=== PATIENT | female | born 1965 | race Asian ===

== ENCOUNTER 2021-08-16 20:25 | Inpatient (IN) | payer MEDICAID ==
[~2021-08-16] VITALS: Ht 152.4 cm; Wt 59.0 kg
[2021-08-16 21:22] VITALS: BP_SYST 173
[2021-08-16 22:43] LABS: NEUTROPHILS # (AUTO) 4.9 K/uL (1.8-7.7); WHITE BLOOD COUNT (AUTO) 8.2 K/uL (4.8-10.8)
[2021-08-16 22:51] LABS: BASOPHILS % (AUTO) 0.4 % (0.0-2.0); EOSINOPHILS # (AUTO) 0.4 K/uL (0.0-0.4); HEMATOCRIT 37.4 % (36-48); HEMOGLOBIN 12.7 g/dL (12.0-16.0); LYMPHOCYTES # (AUTO) 2.4 K/uL (1.0-5.5); MEAN CORPUSCULAR HEMOGLOBIN 28 pg (27-31); MEAN CORPUSCULAR HGB CONC 34 % (32-36); MEAN CORPUSCULAR VOLUME 81 fL (79.0-98.0); MONOCYTES # (AUTO) 0.5 K/uL (0.0-1.0); MONOCYTES % (AUTO) 6.5 % (1.7-9.3); NEUTROPHILS % (AUTO) 59.1 % (40.0-70.0); PLATELET COUNT (AUTO) 229 K/uL (130-430); RED BLOOD CELL COUNT(AUTO) 4.59 MIL/uL (4.2-6.2); RED CELL DISTRIBUTION WIDTH 12.6 % (9.0-15.0)
[2021-08-16 22:55] LABS: ALBUMIN 4.2 g/dL (3.4-4.8); CALCIUM 10.7 mg/dL (8.4-11.0); CREATININE 0.69 mg/dL (0.55-1.30); TOTAL BILIRUBIN 0.5 mg/dL (0.0-1.0)
[2021-08-16 23:36] LABS: POTASSIUM 2.9 mmol/L (3.5-5.1)
[2021-08-17] MEDS ORDERED: POTASSIUM CHLORIDE 20 MEQ/PKT PACKET PO ONE (00:15)
[2021-08-17] MEDS ORDERED: KCL 20 mEq in 100 mL (PREMIX) 100 ML IV ONE (00:15)
[2021-08-17] MEDS ORDERED: MAGNESIUM SULFATE 50 ML IV ONE (00:15)
[2021-08-17] MEDS ORDERED: NACL 0.9% 1,000 ML IV ONE (00:15)
[2021-08-17] MEDS ORDERED: ATOR10TA68 PO (02:12)
[2021-08-17] MEDS ORDERED: FAMO20TA8 PO (02:13)
[2021-08-17] MEDS ORDERED: DOCU250C14 PO (02:13)
[2021-08-17] MEDS ORDERED: LOSA100T3 PO (02:14)
[2021-08-17] MEDS ORDERED: METO50TA7 PO (02:14)
[2021-08-17] MEDS ORDERED: HYDR25TA4 PO (02:14)
[2021-08-17] MEDS ORDERED: INSU300I SQ (02:15)
[2021-08-17] MEDS ORDERED: KCL 20 mEq in D5NS 1000 mL 1,000 ML IV ONE ×2 (04:08→21:30)
[2021-08-17 05:26] VITALS: BP_SYST 124
[2021-08-17 08:00] VITALS: BP_SYST 122
[2021-08-17] MEDS: KCL 20 mEq in D5NS 1000 mL 1,000 ML IV SCH ×3 (09:14→21:34)
[2021-08-17] MEDS ORDERED: POLYETHYLENE GLYCOL 3350, 17 GM/ POWD.PACK PO ONE (09:30)
[2021-08-17] MEDS ORDERED: MINERAL OIL 30 ML UDC PO ONE (09:30)
[2021-08-17] MEDS ORDERED: SODIUM PHOSPHATE,MONO-DIBASIC 133 ML ENEMA RC ONE (09:30)
[2021-08-17 12:00] VITALS: BP_SYST 132
[2021-08-17] MEDS ORDERED: INSULIN REGULAR, HUMAN 100 UNITS/ML, 10 ML VIAL (humuLIN R) SUBCUT PRN (13:15)
[2021-08-17] MEDS ORDERED: D5W 1,000 ML IV PRN (13:15)
[2021-08-17] MEDS ORDERED: DEXTROSE 50% JECT 50 ML DISP.SYRIN IVP PRN (13:15)
[2021-08-17] MEDS ORDERED: GLUCOSE (DEXTROSE) ORAL GEL -Adults PO PRN (13:15)
[2021-08-17 16:00] VITALS: BP_SYST 144
[2021-08-17] MEDS ORDERED: LUBIPROSTONE 8 MCG CAPSULE PO SCH ×2 (16:30→21:00)
[2021-08-17] MEDS ORDERED: DOCUSATE SODIUM 250 MG CAPSULE PO PRN (16:30)
[2021-08-17 16:57] LABS: CALCIUM 8.2 mg/dL (8.4-11.0); CREATININE 0.52 mg/dL (0.55-1.30); POTASSIUM 3.3 mmol/L (3.5-5.1)
[2021-08-17 19:40] VITALS: BP_SYST 147
[2021-08-17] MEDS: POLYETHYLENE GLYCOL 3350, 17 GM/ POWD.PACK PO SCH (20:36)
[2021-08-17] MEDS: ENOXAPARIN SODIUM 40 MG/0.4 ML SYRINGE SUBCUT SCH (21:00)
[2021-08-17] MEDS: INSULIN GLARGINE 100 UNITS/ML 10 ML VIAL SUBCUT SCH (21:26)
[2021-08-18 00:08] VITALS: BP_SYST 119
[2021-08-18 08:00] VITALS: BP_SYST 128
[2021-08-18] MEDS: LOSARTAN POTASSIUM 50 MG TABLET (COZAAR) PO SCH (09:00)
[2021-08-18] MEDS: METOPROLOL SUCCINATE 50 MG TAB.SR.24H (TOPROL XL) PO SCH (09:00)
[2021-08-18] MEDS: LUBIPROSTONE 8 MCG CAPSULE PO SCH ×2 (09:00→21:00)
[2021-08-18] MEDS: FAMOTIDINE 20 MG TABLET PO SCH (09:25)
[2021-08-18] MEDS: ATORVASTATIN 10 MG TABLET PO SCH (09:25)
[2021-08-18] MEDS: POLYETHYLENE GLYCOL 3350, 17 GM/ POWD.PACK PO SCH ×2 (09:25→22:48)
[2021-08-18] MEDS: KCL 20 mEq in D5NS 1000 mL 1,000 ML IV SCH (12:13)
[2021-08-18 13:14] VITALS: BP_SYST 137
[2021-08-18 14:17] VITALS: BP_SYST 119
[2021-08-18 16:38] VITALS: BP_SYST 137
[2021-08-18 20:00] VITALS: BP_SYST 144
[2021-08-18] MEDS: ENOXAPARIN SODIUM 40 MG/0.4 ML SYRINGE SUBCUT SCH (21:00)
[2021-08-18] MEDS: INSULIN GLARGINE 100 UNITS/ML 10 ML VIAL SUBCUT SCH (21:00)
[2021-08-19 00:30] VITALS: BP_SYST 117
[2021-08-19] MEDS: KCL 20 mEq in D5NS 1000 mL 1,000 ML IV SCH (02:56)
[2021-08-19 06:56] LABS: BASOPHILS % (AUTO) 0.5 % (0.0-2.0); EOSINOPHILS # (AUTO) 0.8 K/uL (0.0-0.4); EOSINOPHILS % (AUTO) 9.8 % (0.0-4.0); HEMATOCRIT 34.5 % (36-48); HEMOGLOBIN 11.9 g/dL (12.0-16.0); LYMPHOCYTES # (AUTO) 2.3 K/uL (1.0-5.5); LYMPHOCYTES % (AUTO) 29.4 % (20.5-51.5); MEAN CORPUSCULAR HEMOGLOBIN 29 pg (27-31); MEAN CORPUSCULAR HGB CONC 35 % (32-36); MEAN CORPUSCULAR VOLUME 83 fL (79.0-98.0); MONOCYTES # (AUTO) 0.4 K/uL (0.0-1.0); MONOCYTES % (AUTO) 5.3 % (1.7-9.3); NEUTROPHILS # (AUTO) 4.2 K/uL (1.8-7.7); PLATELET COUNT (AUTO) 213 K/uL (130-430); RED BLOOD CELL COUNT(AUTO) 4.18 MIL/uL (4.2-6.2); RED CELL DISTRIBUTION WIDTH 12.9 % (9.0-15.0); WHITE BLOOD COUNT (AUTO) 7.7 K/uL (4.8-10.8)
[2021-08-19 07:36] LABS: CREATININE 0.55 mg/dL (0.55-1.30); POTASSIUM 3.6 mmol/L (3.5-5.1)
[2021-08-19 08:01] VITALS: BP_SYST 141
[2021-08-19] MEDS: LOSARTAN POTASSIUM 50 MG TABLET (COZAAR) PO SCH (08:15)
[2021-08-19] MEDS: ATORVASTATIN 10 MG TABLET PO SCH (08:15)
[2021-08-19] MEDS: POLYETHYLENE GLYCOL 3350, 17 GM/ POWD.PACK PO SCH (08:15)
[2021-08-19] MEDS: FAMOTIDINE 20 MG TABLET PO SCH (08:15)
[2021-08-19] MEDS: METOPROLOL SUCCINATE 50 MG TAB.SR.24H (TOPROL XL) PO SCH (08:16)
[2021-08-19] MEDS: LUBIPROSTONE 8 MCG CAPSULE PO SCH (08:28)
[2021-08-19 10:48] VITALS: BP_SYST 140
== END 2021-08-19 11:30 | disposition home or self-care (01) | DRG 254 ==
LOC: SED 20:25 → STU 08-17 02:14
PROVIDERS: ADMIT Family Medicine; ATTEND Family Medicine
DX: K59.00 Constipation, unspecified (principal); E87.1 Hypo-osmolality and hyponatremia; G70.00 Myasthenia gravis without (acute) exacerbation; E11.9 Type 2 diabetes mellitus without complications; E87.6 Hypokalemia; E86.0 Dehydration; I10 Essential (primary) hypertension; Z20.822 Contact with and (suspected) exposure to COVID-19; Z79.899 Other long term (current) drug therapy; Z90.49 Acquired absence of other specified parts of digestive tract
CPT/HCPCS: 36415; 74018; 80048; 80053; 82962; 83690; 85025; 96365; 99285; G0378; J1650; J1815; J3475; J3480